=== PATIENT | male | born 1950 | race Caucasian/White ===

== ENCOUNTER → 2023-08-25 14:31 | Outpatient (REF) | payer MEDICARE, OTHER, SELFPAY | LOC: RAD 14:31 | PROVIDERS: ATTENDING PHYSICIAN Specialist; FAMILY PHYSICIAN Family Medicine | DX: N20.0 Calculus of kidney (principal) | CPT/HCPCS: 74018 ==

== ENCOUNTER → 2024-03-18 09:45 | Outpatient (REF) | payer MEDICARE, OTHER, SELFPAY | LOC: RAD 09:45 | PROVIDERS: ATTENDING PHYSICIAN Specialist; FAMILY PHYSICIAN Family Medicine | DX: N20.0 Calculus of kidney (principal) | CPT/HCPCS: 74018 ==

== ENCOUNTER → 2024-03-24 14:05 | Outpatient (REF) | payer MEDICARE, OTHER, SELFPAY | LOC: RAD 14:05 | PROVIDERS: ATTENDING PHYSICIAN Specialist; FAMILY PHYSICIAN Family Medicine | DX: N20.0 Calculus of kidney (principal) | CPT/HCPCS: 74176 ==

== ENCOUNTER → 2024-03-29 11:04 | Outpatient (REF) | payer MEDICARE, OTHER, SELFPAY ==
[2024-03-29 11:29] LABS: Hematocrit 47.1 % (39.0-52.0); Hemoglobin 16.4 g/dL (13.0-18.0); Mean Corp Hgb Conc. 34.8 g/dL (33.0-37.0); Mean Corpuscular Hgb 31.1 pg (27.0-31.0); Mean Corpuscular Volume 89.2 fL (80.0-94.0); Mean Platelet Volume 9.9 fL (7.4-10.4); Platelet Count 226 10^3/uL (130-400); Red Blood Cell Count 5.28 10^6/uL (4.70-6.10); White Blood Cell Count 7.6 10^3/uL (4.8-10.8)
[2024-03-29 12:03] LABS: Blood Urea Nitrogen 19 mg/dl (9-20); Calcium 9.3 mg/dl (8.4-10.2); Carbon Dioxide 27 mmol/L (22-30); Chloride 106 mmol/L (98-107); Glucose 103 mg/dl (70-99); Potassium 4.4 mmol/L (3.5-5.1); Sodium 141 mmol/L (135-145); eGFR > 60.00
== END ==
LOC: SDSPAT 11:04
PROVIDERS: ATTENDING PHYSICIAN Specialist; FAMILY PHYSICIAN Family Medicine
DX: Z01.810 Encounter for preprocedural cardiovascular examination (principal); Z01.812 Encounter for preprocedural laboratory examination
CPT/HCPCS: 36415; 80048; 85027; 93005

== ENCOUNTER 2024-04-05 06:16 | Day surgery (SDC) | payer MEDICARE, OTHER, SELFPAY ==
[2024-03-29 12:30] VITALS: BMI 35.7
[2024-04-05] VITALS (12 sets, daily range): BP systolic 113–160; BP diastolic 66–100; BMI 35.7
[2024-04-05] MEDS: FLOMAX 0.4 MG PO (12:52)
[2024-04-05] MEDS: TYLENOL 1000 MG PO (12:56)
[2024-04-05] MEDS: Pyridium 200 MG PO (16:13)
[2024-04-05] MEDS: SUBLIMAZE 50 MCG IV (16:27)
[2024-04-05] MEDS: TORADOL 15 MG IV (16:46)
== END 2024-04-05 19:48 | disposition home or self-care (01) ==
LOC: SDS 06:16
PROVIDERS: ATTENDING PHYSICIAN Specialist
DX: N20.1 Calculus of ureter (principal); E85.4 Organ-limited amyloidosis; N32.0 Bladder-neck obstruction
CPT/HCPCS: 52356; 88305; 74420; 76000; 82365; 88313; A4300; C1894; C2617

== ENCOUNTER 2024-05-17 06:26 | Day surgery (SDC) | payer MEDICARE, OTHER, SELFPAY ==
[2024-05-17] VITALS (7 sets, daily range): BP systolic 124–153; BP diastolic 75–84; BMI 35.4
[2024-05-17 12:10] LABS: Urine Albumin 1+ (Neg - Trace); Urine Bilirubin Negative (Negative); Urine Character Clear (Clear); Urine Color Yellow; Urine Glucose Negative (Negative); Urine Ketone Negative (Negative); Urine Leukocyte 1+ (Negative); Urine Nitrite Negative (Negative); Urine Occult Blood 3+ (Negative); Urine Urobilinogen Negative (Neg - 1+)
[2024-05-17 13:33] LABS: Urine Red Blood Cell 16-20 /HPF (0-2); Urine Squamous Cell 0-2 /LPF (Few)
[2024-05-17 13:34] LABS: Urine Bacteria Few (Negative)
[2024-05-17] MEDS: Pyridium 200 MG PO (16:06)
== END 2024-05-17 17:01 | disposition home or self-care (01) ==
LOC: SDS 06:26
PROVIDERS: ATTENDING PHYSICIAN Specialist
PROC: 0T768DZ Dilation of Right Ureter with Intraluminal Device, Via Natural or Artificial Opening Endoscopic (ICD-10-PCS; 2024-05-17)
PROC: BT1D1ZZ Fluoroscopy of Right Kidney, Ureter and Bladder using Low Osmolar Contrast (ICD-10-PCS; 2024-05-17)
PROC: 0TP98DZ Removal of Intraluminal Device from Ureter, Via Natural or Artificial Opening Endoscopic (ICD-10-PCS; 2024-05-17)
PROC: 0TC68ZZ Extirpation of Matter from Right Ureter, Via Natural or Artificial Opening Endoscopic (ICD-10-PCS; 2024-05-17)
DX: N13.2 Hydronephrosis with renal and ureteral calculous obstruction (principal); E85.89 Other amyloidosis
CPT/HCPCS: 52356; 74420; 76000; 81003; 81015; 87086; A4300; C2617; J1580

== ENCOUNTER 2024-05-23 22:21 | Emergency (ER) | payer MEDICARE, OTHER, SELFPAY ==
[2024-05-23 22:37] VITALS: BP 152/95
[2024-05-23 23:21] LABS: % Basophils 0.7 % (0-2); % Eosinophils 1.9 % (0-6); % Immature Granulocytes 0.5 % (0-0.5); % Lymphocytes 19.7 % (20.5-51.1); % Monocytes 8.5 % (1.7-9.3); % Neutrophils 68.7 % (42.2-75.2); Absolute Basophils 0.1 10^3/uL (0-0.2); Absolute Eosinophils 0.2 10^3/uL (0-0.7); Absolute Immature Granulocytes 0.1 10^3/uL (0-0.05); Absolute Monocytes 0.8 10^3/uL (0.1-0.6); Absolute Neutrophils 6.8 10^3/uL (1.4-6.5); Hematocrit 43.6 % (39.0-52.0); Hemoglobin 15.4 g/dL (13.0-18.0); Mean Corp Hgb Conc. 35.3 g/dL (33.0-37.0); Mean Corpuscular Hgb 30.7 pg (27.0-31.0); Mean Corpuscular Volume 86.9 fL (80.0-94.0); Mean Platelet Volume 9.9 fL (7.4-10.4); Nucleated Red Blood Cells % 0 % (-); Platelet Count 259 10^3/uL (130-400); Red Blood Cell Count 5.02 10^6/uL (4.70-6.10); Red Cell Dist. Width 12.8 % (11.5-14.5); White Blood Cell Count 9.9 10^3/uL (4.8-10.8)
[2024-05-23 23:37] LABS: ALT (SGPT) 25 U/L (0-50); AST (SGOT) 31 U/L (17-59); Albumin 4.2 g/dl (3.5-5.0); Alkaline Phosphatase 105 U/L (38-126); Blood Urea Nitrogen 20 mg/dl (9-20); Carbon Dioxide 20 mmol/L (22-30); Chloride 105 mmol/L (98-107); Glucose 114 mg/dl (70-99); Potassium 4.2 mmol/L (3.5-5.1); Sodium 137 mmol/L (135-145); Total Bilirubin 1.2 mg/dl (0.2-1.3); Total Protein 6.6 g/dl (6.3-8.2); eGFR > 60.00
--- NOTE | 2024-05-24 04:54 | ED.GENMED ---
History of Present Illness
General
Chief Complaint: Urinary Symptoms
Source: patient
Time Seen by Provider: 05/24/24 04:34
History of Present Illness
History of Present Illness:
74-year-old male presents to the emergency room complaining of hematuria and difficulty passing urine. Patient had urologic surgery by Dr. Mckenzie about 4 to 5 days ago. Initially he was doing well but last night developed the above symptoms. In
triage he was noted to have some retention of urine and a Fofana was placed. Urine retrieved was grossly bloody but nurse did not observe any significant clots. Patient feels better after Fofana placement. Patient is prescribed Plavix. He had
stopped it for several days prior to the surgery and only resumed it recently.
Phy Exam
Physical Exam
Physical Exam:
General: Awake, Alert, Oriented X3. Appears stated age
Vitals: unremarkable
Head: Atraumatic
Eyes: Pupils equal, EOMI
Throat: Airway intact, no exudates
Neck: Trachea midline
Lungs: Clear and equal b/l
Heart: Regular rate, no murmurs
Abd: Soft, Nontender, No pulsatile mass
Neuro: Nonfocal
Skin: Warm, dry, no rash
Extremities: pulses equal b/l, no edema
Course
Orders/Labs/Results
Orders:
Orders
05/23/24 23:15
Type And Crossmatch [Type+Screen] Urgent
CBC/With Diff [Complete Blood Count/With Diff] Urgent
CMP [Comprehensive Metabolic Panel] Urgent
Abnormal Lab Results
05/23/24
23:15
Abs Immat Gran (auto) 0.1 H 10^3/uL
(0-0.05)
Absolute Neuts (auto) 6.8 H 10^3/uL
(1.4-6.5)
Absolute Monos (auto) 0.8 H 10^3/uL
(0.1-0.6)
Lymphocytes % 19.7 L %
(20.5-51.1)
Carbon Dioxide 20 L mmol/L
(22-30)
Glucose 114 H mg/dl
(70-99)
05/23/24 23:15
05/23/24 23:15
Vital Signs
Initial and Last Documented VS:
Initial Vital Signs
Temp Pulse Resp BP Pulse Ox
97.5 F 67 24 152/95 98
05/23/24 22:37 05/23/24 22:37 05/23/24 22:37 05/23/24 22:37 05/23/24 22:37
Last Documented Vital Signs
Temp Pulse Resp BP Pulse Ox
97.5 F 80 16 152/95 98
05/23/24 22:37 05/24/24 05:25 05/24/24 05:25 05/23/24 22:37 05/23/24 22:37
MDM/Problems Addressed
MDM/Problems Addressed:
Patient has hematuria which is postoperative in nature. Recommend patient hold his Plavix for the next 3 days. Follow-up with urology as an outpatient. I communicated with Dr. Mckenzie of and he had no particular concerns as far as postoperative
complications.
*Radiology
Radiology exam reviewed: radiology read reviewed
*Pulse Oximetry
Patient hypoxic: no
*Critical Care Note
Total Time (30-74mins, 75-104mins- exclusive of procedures): Not Applicable
ED Attending Note
-
Portions of this chart may have been created with voice recognition software.� Occasional wrong word or��sound alike� substitutions may have occurred due to the inherent limitations of voice recognition software.
Discharge Plan
Departure
Patient Disposition: Home (Routine Discharge)
Date of Disposition: 05/24/24
Time of Disposition: 04:54
Patient with high blood pressure during this ER visit?: No
Condition: Good
Discharge Problem:
Hematuria
Instructions: Blood in the Urine (Hematuria), Adult (DC)
Prescriptions:
No Action
metoprolol tartrate 25 mg Tablet
25 mg PO BID
atorvastatin 80 mg Tablet
80 mg PO DAILY
clopidogrel 75 mg Tablet
75 mg PO DAILY
colchicine 0.6 mg Tablet
0.6 mg PO BID
dutasteride-tamsulosin 0.5-0.4 mg Capsule, Er Multiphase 24 Hr
1 cap PO DAILY
aspirin 81 mg Capsule
81 mg PO DAILY
Referrals:
Rogelio Tejeda MD [Family Provider] -
Wilfredo Mckenzie MD [Active] -
Activity Restrictions/Additional Instructions:
Please keep your appointment with Dr. Mckenzie this morning
Interventions
Interventions:
*Risk Screen - Suicide Last Done: 05/23/24 22:37
*General Assessment Last Done: 05/23/24 22:37
*Neglect/Abuse Screening Last Done: 05/23/24 22:37
ED- Fall Risk Assessment Last Done: 05/24/24 04:11
*ED COVID-19 Vaccine History Last Done: 05/24/24 04:14
*Nursing Disposition Last Done: 05/24/24 05:26
ED-Male Genitourinary Assessment Last Done: 05/24/24 04:11
Discharge Date and Time
Discharge Date/Time: 05/24/24 05:27
Print Language: JAPANESE
== END 2024-05-24 05:27 | disposition home or self-care (01) ==
LOC: EMR 22:21
PROVIDERS: Emergency Medicine; EMERGENCY PHYSICIAN Emergency Medicine; FAMILY PHYSICIAN Family Medicine
DX: R31.9 Hematuria, unspecified (principal); R33.9 Retention of urine, unspecified
CPT/HCPCS: 99283; 80053; 85025; 86850; 86900; 86901

== ENCOUNTER → 2024-06-15 14:58 | Outpatient (REF) | payer MEDICARE, OTHER, SELFPAY | LOC: RAD 14:58 | PROVIDERS: ATTENDING PHYSICIAN Internal Medicine Cardiovascular Disease; FAMILY PHYSICIAN Family Medicine | DX: Z98.61 Coronary angioplasty status (principal); I25.10 Atherosclerotic heart disease of native coronary artery without angina pectoris; I10 Essential (primary) hypertension | CPT/HCPCS: 71046 ==

== ENCOUNTER → 2024-10-24 10:30 | Outpatient (REF) | payer MEDICARE, OTHER, SELFPAY | LOC: RAD 10:30 | PROVIDERS: ATTENDING PHYSICIAN Physician Assistant Medical; FAMILY PHYSICIAN Family Medicine | DX: N13.5 Crossing vessel and stricture of ureter without hydronephrosis (principal) | CPT/HCPCS: 76770 ==